=== PATIENT | male | born 2005 | race Caucasian/White ===

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

== ENCOUNTER 2024-10-06 11:35 | Emergency (ER) | payer SELFPAY ==
[2024-10-06 11:37] VITALS: BP 117/75; PULSE 74; RESP 16; TEMP 36.6; O2SAT 98; BMI 31.3
--- NOTE | 2024-10-06 11:40 | ECG_ITS ---
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
--- NOTE | 2024-10-06 11:44 | XR_ITS ---
WS: [id number] Portable AP upright chest, 10/06/2024 Clinical Data: dyspnea/cough Comparison: None. Findings: No nodules, masses or effusions are seen. The heart is normal. The pulmonary vascularity is not increased. No pneumonia or pneumothorax is seen. XR/XR chest 1V portable [id number] Impression: Negative chest.
[2024-10-06 12:47] VITALS: BP 125/61; PULSE 63; RESP 16; O2SAT 99
--- NOTE | 2024-10-06 12:57 | ED_ITS ---
HPI - General Adult General: Chief complaint: Shortness of Breath/Dyspnea Stated complaint: cp,sob Time Seen by Provider: 10/06/24 12:42 History of Present Illness: Patient is a 19-year-old male who presents with concerns of respiratory symptoms after exposure to black mold approximately two weeks ago. Patient reports that while cleaning black mold at work, he was scrubbing approximately 6-12 inches away from the mold and believes he inhaled some of it. He used hydrogen peroxide on a rag to clean the mold but denies direct exposure of the cleaning solution to his face. Since the exposure, patient has been experiencing chest discomfort and shortness of breath. He states he does not have his full range of breathing compared to before the exposure. He reports experiencing temperature fluctuations, feeling hot and cold rapidly, requiring him to frequently put on and remove his sweater. Patient denies checking for fever. He denies any chest pain. A chest X-ray was performed which showed no acute findings. Related Data Home Medications ?Medication ?Instructions ?Recorded ?Confirmed No Known Home Medications 12/23/2212/07 Previous Rx's ?Medication ?Instructions ?Recorded buspirone 10 mg tablet 10 mg PO BID 90 days #180 ta bs 12/23/22 dextroamphetamine-amphetamine ER 25 mg PO DAILY 30 day s #30 caps 12/23/22 25 mg 24hr capsule,extend release prazosin 1 mg capsule 2 mg (2 x 1 mg) PO QPM #90 c aps 12/23/22 sertraline 100 mg tablet 150 mg (1.5 x 100 mg) PO RISHABH LY #90 12/23/22 tabs trazodone 100 mg tablet 100 mg PO QPM #90 tabs 12/23 Allergies Allergy/AdvReac Type Severity Reaction Status Date / Time Penicillins Allergy Unknown Verified 12/23/22 13:29 Sulfa (Sulfonamide Allergy Unknown Verified 12/23/22 13:29 Antibiotics) [facility] ED PFS: Medical History (Updated 10/06/24 @ 13:01 by Balbir Calhoun MD) Anxiety Vitamin D deficiency Depression, major ADHD Motor tic disorder Family History Family/Other No problems noted. Grandmother Cancer cervical->brain Grandmother Cancer lung cancer Other Diabetes Hypertension Lung disease Psychiatric illness Denies family history of CAD (coronary artery disease) Social History Smoking and tobacco/nicotine status: current every day tobacco/nicotine user e- cigarettes E-Cigarette Details: vaporizer device Second hand smoke exposure: No Alcohol intake: never Substance/Drug Use: current Substance/Drug use frequency: few times a week Lives independently: Yes Marital status: Single Number of children: 0 service: No Current occupational status: employed Current occupation: [employer] Special shashank needs: No Agree to transfusion: Yes Physical Exam Const: COMMON NORMALS: no acute distress, average body habitus, alert and well nourished GENERAL APPEARANCE: cooperative ORIENTATION/CONSCIOUSNESS: Yes awake HENMT: COMMON NORMALS: normocephalic and atraumatic HEAD & SCALP: normocephalic and atraumatic Eye: COMMON NORMALS: conjunctivae normal CONJUNCTIVA: Yes conjunctivae normal Neck/C-Spine: GENERAL: Yes normal visual inspection Resp: COMMON NORMALS: normal respiratory effort, No retractions and No use of accessory muscles Cardio: COMMON NORMALS: regular rhythm and Peripheral pulses 2+ throughout RHYTHM: regular rhythm PERIPHERAL PULSES: Peripheral pulses 2+ throughout GI: COMMON NORMALS: Soft to palpation and non-tender PALPATION: Yes Soft to palpation Extremity: COMMON NORMALS: full ROM and no pedal edema Neuro: COMMON NORMALS: no focal motor deficits SENSORIUM/ORIENTATION: Yes alert Skin: COMMON NORMALS: no rashes or lesions noted GENERAL SKIN EXAM: no rashes or lesions noted Course Vital Signs: Vital signs: Vital Signs Temperature 98 F 10/06/24 11:37 Pulse Rate 63 10/06/24 12:47 Respiratory Rate 16 10/06/24 12:47 Blood Pressure 125/61 10/06/24 12:47 Pulse Oximetry 99 10/06/24 12:47 Oxygen Delivery Me thod Room Air 10/06/24 11:37 MDM - General Adult Medical Decision Making ROS: Constitutional: Reports possible temperature fluctuations but has not checked for fever. Respiratory: Positive for shortness of breath and chest discomfort. Denies chest pain. All other systems: Negative or not addressed in the encounter. MEDICATIONS AND ALLERGIES: - Meds: None reported - Allergies: Family history of penicillin and sulfa allergies, but patient has not been tested PAST HISTORICAL DATA: - PMH: No chronic medical problems reported - PSH: None reported - Social: Patient reports vaping and marijuana use. Also reports past use of psilocybin mushrooms but not recently VITAL SIGNS: - Heart rate: 60 bpm - Oxygen saturation: 100% on room air INITIAL IMPRESSION AND PLAN: Given the history and presentation, the primary working diagnosis is respiratory irritation secondary to mold exposure. Additional considerations include upper respiratory infection, allergic reaction, or anxiety-related symptoms. Based on this initial impression I will order a chest X-ray to rule out pneumonia or other pulmonary pathology. Will assess vital signs and perform a thorough physical examination to evaluate respiratory status. TEST INTERPRETATIONS: - Chest X-ray: No acute findings. Heart is normal. Pulmonary vasculature is not increased. No pneumonia. No pneumothorax noted. CONSIDERED BUT NOT PERFORMED: Blood work CONSIDERED but NOT DONE due to no perceived benefit given normal vital signs, normal physical examination, and normal chest X-ray findings. OTC medication(s)/intervention(s) recommended included: Antihistamines such as Zyrtec or Karla for symptomatic relief of possible irritant reaction. FINAL IMPRESSION: Based on all the above, my clinical impression is most compatible with respiratory irritation due to environmental exposure (black mold). The clinical picture is not currently suggestive of pneumonia, pneumothorax, or other acute pulmonary pathology. Although other conditions were also considered, they were deemed unlikely based on the clinical information available. CLINICAL DISPOSITION: The patient's current condition is stable in my estimation and the most appropriate and indicated disposition at this time is discharge home with return precautions. The patient is safe for discharge home as he has normal vital signs, a normal physical examination, and a normal chest X-ray. His oxygen saturation is 100% on room air, indicating adequate respiratory function. He is no longer being exposed to the irritant (black mold), which should allow for gradual resolution of his symptoms. He has been advised on symptomatic management with antihistamines and given clear return precautions. RISK STRATIFICATION AND CLINICAL DECISION RULES APPLIED: No formal clinical decision rules were applied in this case. Clinical decision- making was based on history, physical examination, and chest X-ray findings, which collectively indicated a low risk for serious pulmonary pathology. CASE SUMMARY: 19-year-old male with no significant past medical history presented with respiratory symptoms after reported exposure to black mold approximately two weeks ago while cleaning at work. Patient reported chest discomfort and shortness of breath since the exposure. Vital signs were normal with oxygen saturation of 100% on room air. Physical examination revealed clear breath sounds bilaterally with no signs of respiratory distress. Chest X-ray showed no acute findings, with no evidence of pneumonia or pneumothorax. Assessment revealed likely respiratory irritation due to environmental exposure. Patient was counseled to avoid further exposure to the irritant and recommended to try [id number] antihistamines for symptomatic relief. Given the normal vital signs, normal physical examination, and normal chest X-ray, the patient was deemed safe for discharge home with appropriate return precautions. Lab Data Radiology Impressions Chest X-Ray 10/06/24 11:44 Impression: Negative chest. All radiology interpretation(s) finalized by discharge Discharge Plan Discharge Patient Disposition: Home Clinical Impression: Dyspnea Condition: Stable Prescriptions: No Action No Known Home Medications buspirone 10 mg tablet 10 mg PO BID 90 Days Qty: 180 0RF prazosin 1 mg capsule 2 mg PO QPM Qty: 90 0RF sertraline 100 mg tablet 150 mg PO DAILY Qty: 90 1RF trazodone 100 mg tablet 100 mg PO QPM Qty: 90 1RF dextroamphetamine-amphetamine 25 mg capsule,extended release 24hr 25 mg PO DAILY 30 Days Qty: 30 0RF Discharge Orders: Discharge ED (Routine); Ordered 10/06/24 Ordered By: Balbir Calhoun Referrals: Anuel Hameed MD [Primary Care Provider, [facility]] Discharge Diet: Usual diet Discharge Activity: Resume usual activity Patient Instructions: How Your Lungs Work (ED), Opioid Safety, Pain Management, Patient Portal & Lina Instructions Activity Restrictions/Additional Instructions: 1. Diagnosis: Respiratory irritation due to environmental exposure (black mold) 2. Medications: - Consider [id number] antihistamines such as Zyrtec or Karla for symptomatic relief 3. Activity: No restrictions. Resume normal activities as tolerated. 4. Follow-up: Follow up with your primary care provider if symptoms persist or worsen. 5. Return to the Emergency Department if you experience: - Worsening shortness of breath or difficulty breathing - Chest pain - High fever (temperature > 101.5?F) - Coughing up blood - Any other concerning symptoms 6. Prevention: Avoid further exposure to mold. When cleaning mold in the future, consider using appropriate respiratory protection such as an N95 mask. Print Language: Mongolian Coding Level of Care Code ED Heavy Mobile Equipment Repairer for Chelly Miller
[2024-10-06 13:17] VITALS: BP 125/61; PULSE 59; RESP 16; O2SAT 96
== END 2024-10-06 13:18 | disposition home or self-care (01) ==
PROVIDERS: Emergency Provider Student in an Organized Health Care Education/Training Program; PCP Family Medicine
DX: R06.00 Dyspnea, unspecified (principal); F17.290 Nicotine dependence, other tobacco product, uncomplicated
CPT/HCPCS: 71045; 93005; 99285

== ENCOUNTER 2025-01-29 18:43 | Emergency (ER) | payer SELFPAY ==
[2025-01-29 18:55] VITALS: BP 133/74; PULSE 110; RESP 16; TEMP 37.7; O2SAT 97; BMI 31.3
[2025-01-29 19:11] VITALS: BP 121/74; PULSE 112; RESP 17; O2SAT 95
[2025-01-29 19:21] LABS: Rapid Strep A Test Negative (Negative)
[2025-01-29 19:47] LABS: Respiratory Syncytial Virus Ce NEGATIVE (Negative); SARS-CoV-2 PCR NEGATIVE (Negative)
[2025-01-29 19:57] LABS: Hematocrit 42.6 % (37-53); Hemoglobin 14.30 g/dL (11.27-16.99); Mean Corpuscular HGB Conc 33.6 g/dL (30-55); Mean Corpuscular Hemoglobin 29.4 pg (27-33); Mean Corpuscular Volume 87.5 fl (82-101); Nucleated Red Blood Cells % 0 %; Platelet Count 161 10^3/cmm (157-399); Red Blood Count 4.87 10^6/uL (3.85-5.65); White Blood Count 9.82 10^3/uL (3.29-11.43)
--- NOTE | 2025-01-29 20:11 | CTR_ITS ---
PROCEDURE INFORMATION: Exam: CT Neck With Contrast Exam date and time: 01/29/2025 8:45 PM Age: 20 years old Clinical indication: Dysphagia / difficulty swallowing and tonsilitis; Painful swallowing; Cough with thoat pain, tonsillar swelling, and dysphagia. 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 Radiation optimization: All CT scans at this facility use at least one of these dose optimization techniques: automated exposure control; mA and/or kV adjustment per patient size (includes targeted exams where dose is matched to clinical indication); or iterative reconstruction. Contrast material: OMNI 350; Contrast volume: 100 ml; Contrast route: INTRAVENOUS (IV); COMPARISON: CT head wo con* [id number] 09/19/2022 2:38 PM RADIATION DOSE METRICS: Total DLP (mGy-cm): 274.22 FINDINGS: Brain: Visualized intracranial structures are normal. Paranasal sinuses: Mucous retention cysts noted in the right maxillary sinus. Visualized paranasal sinuses are otherwise clear. Mastoid air cells: No mastoid fluid. Auditory system: No middle ear fluid. Salivary glands: Normal. Glands are normal in size. Pharynx: Prominent adenoids. Enlarged bilateral tonsillar pillars, contacting in the midline. There is a tiny gas bubble in the right tonsillar pillar, likely within a crypt. Mildly enlarged enhancing lingual tonsils. No visible abscess. Larynx: Normal epiglottis. Thyroid: Homogeneous thyroid. Trachea: Visualized trachea is unremarkable. Lungs: Clear lung apices. Lymph nodes: Enlarged cervical lymph nodes are noted, more prominent on the left. Bones/joints: Normal cervical spine. Soft tissues: No prevertebral soft tissue swelling. CT/CT neck w con* [id number] IMPRESSION: Exam demonstrates enlarged tonsils and adenoids without visible abscess. Normal epiglottis.
[2025-01-29 20:22] LABS: Anion Gap 15.3 (5-19); Blood Urea Nitrogen 10 mg/dL (6-20); Calcium 9.1 mg/dL (8.5-10.5); Carbon Dioxide 26 mmol/L (22-29); Chloride 95 mmol/L (98-107); Glucose 93 mg/dL (65-115); Osmolality Calculated 275 mOsm/kg (285-295); Potassium 3.3 mmol/L (3.5-5.1); Sodium 133 mmol/L (136-145)
--- NOTE | 2025-01-29 20:39 | ED_ITS ---
HPI - URI/Sore Throat 2 General: Chief Complaint: Upper Respiratory Infection Stated Complaint: SOB\Cant Swallow Time Seen by Provider: 01/29/25 19:08 History of Present Illness: Patient is a 20yoM with no pmhx who presents with a several-day history of worsening throat pain, which has been intermittent over the past month. The initial episode was milder and resolved after approximately a week and a half before symptoms recurred with increased severity, was never on abx. He reports significant tonsillar swelling, difficulty swallowing secretions, and a tickly throat with mild shortness of breath. He denies significant respiratory symptoms or cough. Had strep throat once as a child. still has his tonsils. Associated symptoms: Reports chills and fever(s); Deny abdominal pain, chest pain, diarrhea or headache(s) Related Data Previous Rx's ?Medication ?Instructions ?Recorded buspirone 10 mg tablet 10 mg PO BID 90 days #180 ta bs 12/23/22 dextroamphetamine-amphetamine ER 25 mg PO DAILY 30 day s #30 caps 12/23/22 25 mg 24hr capsule,extend release prazosin 1 mg capsule 2 mg (2 x 1 mg) PO QPM #90 c aps 12/23/22 sertraline 100 mg tablet 150 mg (1.5 x 100 mg) PO RISHABH LY #90 12/23/22 tabs trazodone 100 mg tablet 100 mg PO QPM #90 tabs 12/23 clindamycin HCl 300 mg capsule 300 mg PO TID #42 caps 01/29/25 (Cleocin HCl) dexamethasone 4 mg tablet 4 mg PO DAILY #1 tab 5 Allergies Allergy/AdvReac Type Severity Reaction Status Date / Time Penicillins Allergy Unknown Verified 12/23/22 13:29 Sulfa (Sulfonamide Allergy Unknown Verified 12/23/22 13:29 Antibiotics) Review of Systems 2 General: Reports: 10 or more systems reviewed and unremarkable except in HPI and below Const: Reports: fever(s), chills and fatigue Eyes: Denies: change in vision or eye discharge ENMT: Reports: throat pain, enlarged tonsils and odynophagia Card: Denies: chest pain, palpitations or swelling of feet/ankles Resp: Denies: dyspnea or productive cough GI: Denies: abdominal pain or diarrhea : Denies: difficulty urinating Musc: Denies: neck pain or back pain Skin/Breast: Denies: rash or jaundice Neuro: Denies: headache(s), numbness in extremities or weakness in extremities Taurus/Lymph: Denies: easy bruising or easy bleeding PFSH ED 2 PFSH: Medical History (Updated 01/29/25 @ 21:21 by Yusuf Hartman DO) Anxiety Vitamin D deficiency Depression, major ADHD Motor tic disorder Family History Family/Other No problems noted. Grandmother Cancer cervical->brain Grandmother Cancer lung cancer Other Diabetes Hypertension Lung disease Psychiatric illness Denies family history of CAD (coronary artery disease) Social History Smoking and tobacco/nicotine status: current every day tobacco/nicotine user e- cigarettes E-Cigarette Details: vaporizer device Second hand smoke exposure: No Alcohol intake: never Substance/Drug Use: current Substance/Drug use frequency: few times a week Lives independently: Yes Marital status: Single Number of children: 0 service: No Current occupational status: employed Current occupation: [employer] Special shashank needs: No Agree to transfusion: Yes Physical Exam 2 Narrative: EXAM NARRATIVE: patient fatigued but overall well appearing, nontoxic, low grade temp with mild tachycardia, normotensive, normal RR, satting well, NAD. HEENT with BL very erythematous and enlarged tonsilar pillars, no obvious exuduates, no uvular deviation, no pooling of secretions, mild cervical LAD, unlabored resp status, mildly dehydrated appearing, abd soft NT ND. no rashes. GCS 15. 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 will get infectious labs, CT neck for further eval of possible BL ASSIST[employer] SUPERINTENDENT, deeper space pathology with significance of physical exam and vitals. 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 labs consistent with infection but no evidence of organ dysfunction, after the above meds, patient felt markedly better, his odonophagia and swallowing was much improved, he was able to tolerate PO without issue, no deterioation in respiratory status, vitals normalized after treatment and he was able to be discharged with a 10d course of abx, second dose of steroids and advised to fu with PCP in a few days for reevalution of the status of his infection, given very strict return precautions, dc'd in stable condition, work note provided. Lab Data 01/29/25 19:49 01/29/25 19:[address] 01/29/25 20:11 IMPRESSION: Exam demonstrates enlarged tonsils and adenoids without visible abscess. Normal epiglottis. Laboratory Results WBC 9.82 10^3/uL (3.29-11.43) 01/29/25 19:49 RBC 4.87 10^6/uL (3.85-5.65) 01/29/25 19:49 Hgb 14.30 g/dL (11.27-16.99) 01/29/25 19:49 Hct 42.6 % (37-53) 01/29/25 19:49 MCV 87.5 fl (82-101) 01/29/25 19:49 MCH 29.4 pg (27-33) 01/29/25 19:49 MCHC 33.6 g/dL (30-55) 01/29/25 19:49 RDW 12.0 % (12.1-15.1) L 01/29/25 19:49 Plt Count 161 10^3/cmm (157-399) 01/29/25 19:49 MPV 9.7 fL (7.4-10.4) 01/29/25 19:49 Neut % (Auto) 77.7 % 01/29/25 19:49 Lymph % (Auto) 11.6 % 01/29/25 19:49 [place] % (Auto) 10.2 % 01/29/25 19:49 Eos % (Auto) 0.0 % 01/29/25 19:49 Baso % (Auto) 0.2 % 01/29/25 19:49 Neut # (Auto) 7.63 10^3/uL (1.8-7.7) 01/29/25 19:49 Lymph # (Auto) 1.1 10^3/uL (0.8-4.8) 01/29/25 19:49 [place] # (Auto) 1.0 10^3/uL (0.2-0.9) H 01/29/25 19:49 Eos # (Auto) 0.0 10^3/uL (0.0-0.8) 01/29/25 19:49 Baso # (Auto) 0.0 10^3/uL (0.0-0.1) 01/29/25 19:49 Nucleated RBC % (auto) 0 % 01/29/25 19:49 Nucleated RBCs # 0.0 /100WBC 01/29/25 19:49 Sodium 133 mmol/L (136-145) L 01/29/25 19:49 Potassium 3.3 mmol/L (3.5-5.1) L 01/29/25 19:49 Chloride 95 mmol/L (98-107) L 01/29/25 19:49 Carbon Dioxide 26 mmol/L (22-29) 01/29/25 19:49 Anion Gap 15.3 (5-19) 01/29/25 19:49 BUN 10 mg/dL (6-20) 01/29/25 19:49 Creatinine 0.9 mg/dL (0.7-1.2) 01/29/25 19:49 GFR Calculation 106.5 mL/min (90-130) 01/29/25 19:49 Glucose 93 mg/dL (65-115) 01/29/25 19:49 Calculated Osmolality 275 mOsm/kg (285-295) L 01/29/25 19:49 Calcium 9.1 mg/dL (8.5-10.5) 01/29/25 19:49 C-React Prot High Sens 16.520 mg/dL (0.0-0.3) H 01/29/25 19:49 Influenza A (PCR) Negative (Negative) 01/29/25 19:04 Influenza Type B (PCR) Negative (Negative) 01/29/25 19:04 RSV (PCR) Negative (Negative) 01/29/25 19:04 SARS-CoV-2 (PCR) Negative (Negative) 01/29/25 19:04 Group A Strep Rapid Negative (Negative) 01/29/25 19:04 All radiology interpretation(s) finalized by discharge Discharge Plan Discharge Patient Disposition: Home Clinical Impression: Acute streptococcal pharyngitis Condition: Stable Prescriptions: New clindamycin HCl [Cleocin HCl] 300 mg capsule 300 mg PO TID Qty: 42 0RF dexamethasone 4 mg tablet 4 mg PO DAILY Qty: 1 0RF No Action buspirone 10 mg tablet 10 mg PO BID 90 Days Qty: 180 0RF prazosin 1 mg capsule 2 mg PO QPM Qty: 90 0RF sertraline 100 mg tablet 150 mg PO DAILY Qty: 90 1RF trazodone 100 mg tablet 100 mg PO QPM Qty: 90 1RF dextroamphetamine-amphetamine 25 mg capsule,extended release 24hr 25 mg PO DAILY 30 Days Qty: 30 0RF Discharge Orders: Discharge ED (Routine); Ordered 01/29/25 Ordered By: Yusuf Hartman Discharge Diet: Advance as tolerated Discharge Activity: Resume usual activity Patient Instructions: Opioid Safety, Pain Management, Patient Portal & Lina Instructions Activity Restrictions/Additional Instructions: You were seen for your sore throat, you were evaluated with labs and the CT scan which found you to have a strep infection causing bilateral severe tonsillitis but no underlying abscess that needed to be drained. You improved with fluids, antibiotics, steroids and pain medicine and were deemed stable to be discharged home. To continue to treat the infection, take the clindamycin 300 mg 3 times a day for at least a total of 10 days, extended to 14 days if you are not feeling completely well by the end of the 10th day. If you are throat starts to swell and feel like it did on your presentation here today, take the second dose of steroids at the 48-hour zi to help with the swelling. Also use salt water gargles to help break up the infection in the back of your throat and improve your swallowing. Return to the ED with difficulties breathing, inability to eat or drink, fevers that do not improve with Tylenol, feeling a lot worse, any other emergent concerns. Stand Alone Forms: Work/School Release Print Language: Monegasque Coding Level of Care Code ED Nail Feeder for Chelly Miller
[2025-01-29] MEDS: iohexol 350 mg/mL 500 mL Btl (per mL) IV (20:51)
[2025-01-29 21:07] VITALS: BP 126/107; PULSE 104; RESP 18; O2SAT 100
[2025-01-29 21:31] VITALS: BP 126/107; PULSE 89; RESP 18; O2SAT 97
== END 2025-01-29 21:33 | disposition home or self-care (01) ==
PROVIDERS: Emergency Provider Student in an Organized Health Care Education/Training Program
DX: J02.0 Streptococcal pharyngitis (principal)
CPT/HCPCS: 70491; 80048; 85025; 86141; 87081; 87637; 87880; 96365; 96375; 99285; J1100; J1885; J3490; J7120